=== PATIENT | male | born 1950 | race Caucasian/White ===

== ENCOUNTER 2024-12-21 15:54 | Emergency (ER) | payer MEDICARE, OTHER, SELFPAY ==
[2024-12-21 16:02] VITALS: BP 168/74
[2024-12-21] MEDS: REGLAN 10 MG IV (17:32)
[2024-12-21] MEDS: MAGNESIUM SULFATE 50 IV (17:33)
[2024-12-21 17:46] VITALS: BP 130/60; BMI 33.1
[2024-12-21] MEDS: TORADOL 15 MG IV (18:03)
--- NOTE | 2024-12-21 18:30 | ED.GENMED ---
History of Present Illness
General
Chief Complaint: Headache
Time Seen by Provider: 12/21/24 17:11
History of Present Illness
History of Present Illness:
74-year-old male with history of coronary artery disease and hypertension presents the emergency department for evaluation of a persistent headache for the past 5 days. Describes a radiating pain from the upper neck to the forehead bilaterally,
improves with Tylenol but then again worsens. Seems to worsen evening. Reports photophobia without nausea. No recent fevers or chills. Pain does worsen with neck motion
Past History
Past History
ED Past Medical History: CAD (negative cath ?[place]), HTN, Hypercholesterolemia and [place]
ED Past Surgical History: Cardiac (Cath)
Social History
Tobacco: Former smoker
Alcohol: None
Personal:
Living: with family
Employment: Employed
Review of Systems
Review of Systems
Allergies reviewed?: Yes
All Other Systems: ROS reviewed and negative except as documented in HPI and ROS
Phy Exam
Physical Exam
Physical Exam:
GEN: Well appearing, NAD, WDWN
HEENT: Oral mucosa moist, no scleral icterus, no nasal congestion
Cardiac: Regular rate
Lung: No respiratory distress, no tachypnea
MSK: No gross deformity or injuries
Skin: Good color, no pallor or jaundice, no rashes
Neuro: AO x3; CN II-XII grossly intact. BUE strength 5/5 in all bland, sensation intact and symmetric. BLE strength 5/5 in all bland, sensation intact and symmetric
Psych: Calm, cooperative
Course
Orders/Labs/Results
Orders:
Orders
12/21/24 17:21
Ketorolac [Toradol] 15 mg IV NOW STA
Magnesium Sulfate 2 Gram/50 ml [Magnesium Sulfate] 2 gram in 50 ml IV NOW
Metoclopramide [Reglan] 10 mg IV NOW STA
12/21/24 17:22
CT Head W/o Iv Contrast Urgent
Comment:
Reason For Exam: intractable headache
12/21/24 18:30
Acetaminophen [Tylenol] 650 mg PO NOW STA
Dexamethasone Sod Phosphate [Decadron] 10 mg IV NOW STA
Vital Signs
Initial and Last Documented VS:
Initial Vital Signs
Temp Pulse Resp BP Pulse Ox
98.7 F 68 17 168/74 98
12/21/24 16:02 12/21/24 16:02 12/21/24 16:02 12/21/24 16:02 12/21/24 16:02
Last Documented Vital Signs
Temp Pulse Resp BP Pulse Ox
98.7 F 71 18 130/60 97
12/21/24 16:02 12/21/24 17:46 12/21/24 17:46 12/21/24 17:46 12/21/24 17:46
MDM/Problems Addressed
MDM/Problems Addressed:
Imaging reassuring, headache improved with supportive treatment in the ED. Likely tension headache, discussed supportive care
*Critical Care Note
Total Time (30-74mins, 75-104mins- exclusive of procedures): Not Applicable
ED Attending Note
-
Portions of this chart may have been created with voice recognition software.� Occasional wrong word or��sound alike� substitutions may have occurred due to the inherent limitations of voice recognition software.
Discharge Plan
Departure
Patient Disposition: Home (Routine Discharge)
Date of Disposition: 12/21/24
Time of Disposition: 18:31
Patient with high blood pressure during this ER visit?: No
Discharge Problem:
Acute intractable headache
Instructions: Headache, Adult (DC)
Prescriptions:
No Action
L-Thyroxine
0.1 mg PO DAILY
citalopram 20 MG tablet
20 mg PO HS
lorazepam [Ativan] 0.5 MG tablet
0.5 mg PO HS
lisinopril 40 MG tablet
40 mg PO DAILY
ezetimibe-simvastatin [Vytorin 10-20] 1 EACH tablet
1 ea PO DAILY
Referrals:
Yash Selby MD [Family Provider] -
Interventions
Interventions:
*Risk Screen - Suicide Last Done: 12/21/24 16:03
*General Assessment Last Done: 12/21/24 16:03
*Neglect/Abuse Screening Last Done: 12/21/24 16:03
*ED- Fall Risk Assessment Last Done: 12/21/24 17:37
*ED COVID-19 Vaccine History Last Done: 12/21/24 16:03
ED- Neurological Assessment Last Done: 12/21/24 17:30
Discharge Date and Time
Print Language: INDONESIAN
[2024-12-21] MEDS: DECADRON 10 MG IV (19:06)
[2024-12-21] MEDS: TYLENOL 650 MG PO (19:06)
[2024-12-21 19:11] VITALS: BP 140/68
== END 2024-12-21 19:17 | disposition home or self-care (01) ==
LOC: EMR 15:54
PROVIDERS: EMERGENCY PHYSICIAN Emergency Medicine; FAMILY PHYSICIAN Family Medicine
DX: R51.9 Headache, unspecified (principal); M54.2 Cervicalgia; I25.10 Atherosclerotic heart disease of native coronary artery without angina pectoris; I10 Essential (primary) hypertension; Z87.891 Personal history of nicotine dependence
CPT/HCPCS: 99284; 96365; 96375 ×3; 70450